=== PATIENT | female | born 1970 | race Caucasian/White ===

== ENCOUNTER 2025-06-12 12:03 | Emergency (ER) | payer OTHER | END 2025-06-12 15:21 | disposition home or self-care (01) | LOC: JD.ED 12:03 | DX: M54.50 Low back pain, unspecified (principal); Z88.2 Allergy status to sulfonamides | CPT/HCPCS: 72100; 96372; 99283; A9270; J1171; 99284 ==

== ENCOUNTER 2025-08-16 22:17 | Emergency (ER) | payer OTHER ==
[2025-08-16] MEDS: Ketorolac 60 MG/2 ML SDV IM ONE (22:49)
== END 2025-08-16 23:05 | disposition home or self-care (01) ==
LOC: JD.ED 22:17
DX: M54.50 Low back pain, unspecified (principal); Z88.2 Allergy status to sulfonamides; Z86.16 Personal history of COVID-19; Z90.49 Acquired absence of other specified parts of digestive tract
CPT/HCPCS: 96372; 99283; A9270; J1171; J1885